=== PATIENT | male | born 1985 | race African-American/Black ===

== ENCOUNTER 2017-03-17 09:46 | Emergency (ER) | payer OTHER ==
[~2017-03-17] VITALS: Ht 185.4 cm; Wt 106.6 kg
[~2017-03-17 09:46] MED LIST: BACTRIM DS TAB1 EAC1 ORAL; KEFLEX500 MG ORAL; NKM; NORCO 5-325 TA1 EACH ORAL; NORCO 5/3251 TAB ORAL
[2017-03-17 10:06] VITALS: BP 129/81
[2017-03-17] MEDS ORDERED: Tetracaine 0.5% Opth Soln ONE (10:16)
[2017-03-17] MEDS ORDERED: Fluorescein Strips ONE (10:16)
[2017-03-17] MEDS ORDERED: NAPHCON-A EYE D15 ML OP (10:23)
[2017-03-17] MEDS ORDERED: AKTOB1 DROP LEFT EYE (10:23)
--- NOTE | 2017-03-17 10:26 | Emergency Room Report ---
History of Present Illness General Chief Complaint: Eye Problems Source: Patient Present Illness HPI This is a 31-year-old male presented after having approximately 3 days of increased left-sided eye redness and discharge. The patient been using Visine. He denied any changes in his vision. Patient prior history of lazy into his right eye. He denies any recent trauma. He did not have any fever. He reported having some watery discharge left eye. He denied foreign body sensation. Not flashing lights or floaters. Allergies: Coded Allergies: No Known Allergies (Unverified , 03/16/13) Patient History Reviewed Nursing Documentation: PMH: Agreed, PSxH: Agreed Nursing Documentation-PM Past Medical History: No Stated History Hx Cardiac Problems: No - LLL cellulitis 06/2015 Hx Hypertension: No Review of Systems All Other Systems: negative except mentioned in HPI Physical Exam Vital Signs Date Time Temp Pulse Resp B/P Pulse Ox O2 Delivery O2 Flow Rate FiO2 03/17/17 09:59 97.2 61 14 126/79 100 Room Air General Appearance: well appearing, no apparent distress, alert, GCS 15 Head: normocephalic, atraumatic Eyes: bilateral eye PERRL, bilateral eye other - left eye slight chemosis, PERRL, no fluorescein dye uptake ENT: hearing grossly normal, normal voice Neck: full range of motion, supple Respiratory: no respiratory distress, speaking full sentences Musculoskeletal: no calf tenderness Neurologic: normal gait Psychiatric: mood/affect normal Skin: no rash Medical Decision Making Diagnostic Impression: Primary Impression: Conjunctivitis ER Course Patient presented for a left eye irritation. Differential diagnosis included but wasn't limited to glaucoma, iritis, corneal abrasion, bacterial conjunctivitis, viral conjunctivitis. Patient was advised followup with marketing data specialist in the next one to 2 days. He is given prescriptions for antibacterial eyedrops as well as antihistamines. Chest X-Ray Diagnostic Results Chest X-Ray Ordered: No Last Vital Signs Date Time Temp Pulse Resp B/P Pulse Ox O2 Delivery O2 Flow Rate FiO2 03/17/17 10:06 97.1 64 15 129/81 100 Room Air Status: improved Disposition: HOME, SELF-CARE Condition: Stable Scripts Naphazoline Hcl/Phenir Mal (NAPHCON-A EYE DROPS) 15 Ml Drops 2 DROP OP TWICE A DAY for Itching, #5 ML Prov: Chuck Asencio 03/17/17 Tobramycin Sulf (Tobramycin) 5 Ml Drops 1 DROP LEFT EYE Q4H, #5 ML Prov: Chuck Asencio 03/17/17 Departure Forms: Return to Work Return to Work in (Days): 3 Patient Instructions: Viral Conjunctivitis Chuck Asencio Mar 17, 2017 10:26
[2017-03-17 10:32] VITALS: BP 129/81
== END 2017-03-17 10:34 | disposition home or self-care (01) ==
LOC: EMR 10:29
DX: H10.9 Unspecified conjunctivitis (principal)
CPT/HCPCS: 99284

== ENCOUNTER 2019-01-19 16:15 | Emergency (ER) | payer OTHER ==
[~2019-01-19] VITALS: Ht 185.4 cm; Wt 97.5 kg
[~2019-01-19 16:15] MED LIST changes: +AKTOB1 DROP LEFT EYE; +NAPHCON-A EYE D15 ML OP
[2019-01-19 16:30] VITALS: BP 141/91
--- NOTE | 2019-01-19 16:33 | NUR ---
ED Nurse Note: pt came in with c/o rash, itching since last Wed all over the body; attempted to relieve symptoms with Benadryl for the past 2 days. pt denies pain.. denies fever. will continue to monitor.
--- NOTE | 2019-01-19 16:42 | NUR ---
ED Nurse Note: ermd on bedside talking with the plan of care. will continue to monitor.
[2019-01-19] MEDS ORDERED: CEPHALEXIN500 MG ORAL (16:55)
[2019-01-19] MEDS ORDERED: DIPHENHYDRAMINE25 M1 ORAL (16:55)
[2019-01-19] MEDS ORDERED: PREDNISONE20 MG ORAL (16:55)
[2019-01-19 17:00] VITALS: BP 141/91
--- NOTE | 2019-01-19 17:00 | NUR ---
ER DISCHARGE NOTE: Patient is cleared to be discharged per ERMD, pt is aox4, on room air, with stable vital signs. pt was given dc and prescription instructions, pt was able to verbalize understanding, pt id band removed without complications. pt is able to ambulate with steady gait. pt took all belongings.
--- NOTE | 2019-01-19 17:27 | Emergency Room Report ---
History of Present Illness General Chief Complaint: Skin Rash/Abscess Source: Patient Present Illness HPI 33-year-old male presents ED for evaluation. Complaining of rash to his face and arms and chest. Started a few days ago. States it is itchy. Took Benadryl with some relief. Denies any known food or drug allergies. States he does have a history of seasonal allergies. States he is also having runny nose. Denies any cough or congestion. Denies fevers or chills. Denies any pain. Denies sick contacts or recent travel. No other aggravating relieving factors. Denies any other associated symptoms Allergies: Coded Allergies: No Known Allergies (Unverified , 03/16/13) Patient History Past Medical History: none Past Surgical History: none Pertinent Family History: none Social History: Denies: smoking, alcohol use, drug use Immunizations: UTD Reviewed Nursing Documentation: PMH: Agreed; PSxH: Agreed Nursing Documentation-PMH Past Medical History: No History, Except For Hx Cardiac Problems: No - LLL Cellulitis 06/2015 Hx Hypertension: No - Sinusitis Review of Systems All Other Systems: negative except mentioned in HPI Physical Exam Vital Signs Date Time Temp Pulse Resp B/P (MAP) Pulse Ox O2 Delivery O2 Flow Rate FiO2 01/19/19 16:22 98.8 83 16 141/91 96 Room Air Sp02 EP Interpretation: reviewed, normal General Appearance: no apparent distress, alert, GCS 15, non-toxic Head: normocephalic, atraumatic Eyes: bilateral eye normal inspection, bilateral eye PERRL ENT: hearing grossly normal, normal pharynx, no angioedema, normal voice Neck: full range of motion, supple/symm/no masses Respiratory: chest non-tender, lungs clear, normal breath sounds, speaking full sentences Cardiovascular #1: regular rate, rhythm, no edema Cardiovascular #2: 2+ carotid (R), 2+ carotid (L), 2+ radial (R), 2+ radial (L) , 2+ dorsalis pedis (R), 2+ dorsalis pedis (L) Gastrointestinal: normal bowel sounds, non tender, soft, non-distended, no guarding, no rebound Rectal: deferred Genitourinary: normal inspection, no CVA tenderness Musculoskeletal: back normal, gait/station normal, normal range of motion, non- tender Neurologic: alert, oriented x3, responsive, motor strength/tone normal, sensory intact, speech normal Psychiatric: judgement/insight normal, memory normal, mood/affect normal, no suicidal/homicidal ideation Reflexes: 3+ bicep (R), 3+ bicep (L), 3+ tricep (R), 3+ tricep (L), 3+ knee (R) , 3+ knee (L) Skin: normal color, warm/dry, well hydrated, rash - fine papular rash to cheeks , chest, elbows. nonerythematous base Lymphatic: no adenopathy Medical Decision Making Diagnostic Impression: Primary Impression: Rash and other nonspecific skin eruption ER Course Hospital Course 33-year-old male presents to ED with rash to face, chest, arms Differential diagnoses include: Cellulitis, dermatitis, insect bite, abscess Clinical course Patient placed on stretcher. After initial history, physical exam reveals a male in no acute distress. On exam there is a fine papular rash noted to the cheeks, chest, bilateral elbows. Nonerythematous base. No fluctuance or discharge. Discussed findings with patient. Possible folliculitis versus allergic reaction. No tongue swelling or throat swelling. No signs of anaphylaxis. Safe for discharge and close outpatient follow-up. The some have a PMD. We'll provide referrals Diagnosis - rash stable and discharged to home with prescription for benedryl, prednisone, keflex. Instructed to followup with PMD. Instructed return to ED if symptoms recur or worsen Last Vital Signs Date Time Temp Pulse Resp B/P (MAP) Pulse Ox O2 Delivery O2 Flow Rate FiO2 01/19/19 17:00 98.8 83 16 141/91 96 Room Air Status: improved Disposition: HOME, SELF-CARE Condition: Stable Scripts Cephalexin* (KEFLEX*) 500 Mg Capsule 500 MG ORAL EVERY 6 HOURS for 7 Days, CAP Prov: Terrence Rubio MD 01/19/19 Prednisone* (PREDNISONE*) 20 Mg Tablet 40 MG ORAL DAILY for 5 Days, #10 TAB Prov: Terrence Rubio MD 01/19/19 Diphenhydramine Hcl* (DIPHENHYDRAMINE HCL*) 25 Mg Capsule 25 MG ORAL Q6H PRN for Itching for 5 Days, #30 CAP 0 Refills Prov: Terrence Rubio MD 01/19/19 Referrals: Minerva LONG,REFERRING (PCP) Patient Instructions: Terrence Smith MD Jan 19, 2019 17:27
== END 2019-01-19 17:00 | disposition home or self-care (01) ==
LOC: EMR 16:48
DX: R21 Rash and other nonspecific skin eruption (principal)
CPT/HCPCS: 99282

== ENCOUNTER 2019-04-01 13:32 | Emergency (ER) | payer OTHER ==
[~2019-04-01] VITALS: Ht 185.4 cm; Wt 97.5 kg
[~2019-04-01 13:32] MED LIST changes: +CEPHALEXIN500 MG ORAL; +DIPHENHYDRAMINE25 M1 ORAL; +PREDNISONE20 MG ORAL
--- NOTE | 2019-04-01 13:35 | NUR ---
ED Nurse Note: Patient not in waiting room.
[2019-04-01] MEDS ORDERED: NKM (13:40)
--- NOTE | 2019-04-01 13:45 | NUR ---
ED Nurse Note: PT WALKED IN TO ER TODAY FROM HOME. AOX4. PT C/O TINGLING IN BILATERAL ARMS X THIS AM AFTER HEAVY ALCOHOL CONSUMPTION X LAST NIGHT. PT STATES HE DRANK A LOT OF WATER AND DENIES ANY TINGLING AT THIS TIME. FULL ROM OF BILATERAL EXTREMITIES, CIRCULATION AND SENSATION INTACT, CAP REFILL <3 SECONDS, AND MUSCLE STRENGTH 5/5. PT DENIES NAUSEA OR VOMITING.
[2019-04-01 13:46] VITALS: BP 142/86
--- NOTE | 2019-04-01 14:01 | NUR ---
ED Nurse Note: Patient refused IV hydation. Per patient, 'no needles, pill medication'. Jaspreet Ovalle notified.
--- NOTE | 2019-04-01 14:03 | Emergency Room Report ---
History of Present Illness General Chief Complaint: General Complaint Source: Patient Present Illness HPI 34-year-old male with no significant past medical history here complaining of 1 day of feeling fatigued and dehydrated after alcohol intake. Patient reports that he had a lot of alcohol consumption yesterday however kept drinking water but continues to drink and eat a lot of red meat. Patient denies any vomiting or nausea. Denies diarrhea, blood in emesis, bloody stool. Denies syncope, loss of consciousness, headache and dizziness. Patient reports that he feels extremely tired and was wondering what was going on with him. Is able to an oral hydration and is in no distress. Denies chest pain, abdominal pain, shortness of breath, palpitation, urinary symptoms, and all other associated symptoms. Allergies: Coded Allergies: No Known Allergies (Unverified , 03/16/13) Patient History Past Medical History: see triage record Past Surgical History: unable to obtain Pertinent Family History: none Immunizations: UTD Reviewed Nursing Documentation: PMH: Agreed; PSxH: Agreed Nursing Documentation-PMH Past Medical History: No Stated History Hx Cardiac Problems: No - LLL Cellulitis 06/2015 Hx Hypertension: No - Sinusitis Review of Systems All Other Systems: negative except mentioned in HPI Physical Exam Vital Signs Date Time Temp Pulse Resp B/P (MAP) Pulse Ox O2 Delivery O2 Flow Rate FiO2 04/01/19 13:38 98.1 85 19 147/90 (109) 97 Room Air Sp02 EP Interpretation: reviewed, normal General Appearance: normal inspection, well appearing, no apparent distress, alert, GCS 15 Eyes: bilateral eye normal inspection, bilateral eye PERRL ENT: normal ENT inspection, hearing grossly normal, normal pharynx Neck: normal inspection, full range of motion, supple Respiratory: normal inspection, chest non-tender, lungs clear Cardiovascular #1: normal inspection, normal peripheral pulses, regular rate, rhythm Gastrointestinal: normal inspection, non tender, soft Genitourinary: no CVA tenderness Neurologic: normal inspection, alert, oriented x3, responsive, park recreation manager III-XII nml as tested, motor strength/tone normal Skin: normal inspection, normal color, no rash Lymphatic: normal inspection, no adenopathy Medical Decision Making PA Attestation All diagnoses and treatment plans were reviewed and discussed with my supervising physician Dr. Christiansen Diagnostic Impression: Primary Impression: Hangover ER Course 34-year-old male with no significant past medical history here complaining of 1 day of feeling fatigued and dehydrated after alcohol intake. Patient reports that he had a lot of alcohol consumption yesterday however kept drinking water but continues to drink and eat a lot of red meat. Patient denies any vomiting or nausea. Denies diarrhea, blood in emesis, bloody stool. Denies syncope, loss of consciousness, headache and dizziness. Patient reports that he feels extremely tired and was wondering what was going on with him. Is able to an oral hydration and is in no distress. Denies chest pain, abdominal pain, shortness of breath, palpitation, urinary symptoms, and all other associated symptoms. Ddx considered but are not limited to: Alcohol intoxication, alcohol withdrawal , hangover Vital signs: are WNL, pt. is afebrile H&PE are most consistent with: However due to alcohol intake ORDERS: Patient refused IV fluids and injections of Zofran, p.o. Zofran was given ED INTERVENTIONS: Zofran DISCHARGE: At this time pt. is stable for d/c to home. Will provide printed patient care instructions, and any necessary prescriptions. Care plan and follow up instructions have been discussed with the patient prior to discharge. Patient to increase water intake specially electrolyte water avoid eating heavy meals follow-up with her primary care provider avoid drinking alcohol Last Vital Signs Date Time Temp Pulse Resp B/P (MAP) Pulse Ox O2 Delivery O2 Flow Rate FiO2 04/01/19 13:46 98.2 82 16 142/86 98 Room Air Disposition: HOME, SELF-CARE Condition: Stable Scripts Ondansetron (Zofran) 4 Mg Tablet 4 MG ORAL Q6H PRN for Nausea & Vomiting, #10 TAB Prov: Vasquez Nath 04/01/19 Patient Instructions: Alcohol Withdrawal Additional Instructions: Increase oral hydration specially electrolyte water take medication as directed avoid eating heavy meals rest and hydrate Vasquez Nath Apr 01, 2019 14:03
[2019-04-01] MEDS ORDERED: ZOFRAN4 M1 ORAL (14:04)
[2019-04-01 14:13] VITALS: BP 138/84
--- NOTE | 2019-04-01 14:13 | NUR ---
ED Nurse Note: PT SITTING PEACEFULLY IN BED IN NAD. AOX4. PRESCRIPTION AND DISCHARGE PAPERWORK EXPLAINED TO PT. PT VERBALIZES UNDERSTANDING AND ALL QUESTIONS ANSWERED. PRESCRIPTION AND DISCHARGE PAPERWORK GIVEN TO PT AND ID WRISTBAND REMOVED. PT WALKED OUT OF ER WITH STEADY GAIT AND ALL BELONGINGS.
== END 2019-04-01 14:12 | disposition home or self-care (01) ==
LOC: EMR 14:02
DX: F10.129 Alcohol abuse with intoxication, unspecified (principal)
CPT/HCPCS: 99282